=== PATIENT | female | born 1945 | race Caucasian/White ===

== ENCOUNTER 2021-09-30 18:12 | Inpatient (IN) | payer OTHER ==
[~2021-09-30] VITALS: Ht 165.1 cm; Wt 76.4 kg
[2021-09-30 22:24] LABS: Basophils # (auto) 0.1 10 ^3/uL (0-0.2); Basophils % (auto) 0.8 % (0.0-2.0); Eosinophils # (auto) 0 10 ^3/uL (0-0.8); Eosinophils % (auto) 0.2 % (0.0-7.0); Hematocrit 41.7 % (36.0-46.0); Hemoglobin 13.3 g/dL (12.2-16.2); Lymphocytes # (auto) 2.2 10 ^3/uL (0.4-5.4); Lymphocytes % (auto) 17.6 % (10.0-50.0); Mean Corpuscular Hemoglobin 29.2 pg (28.0-32.0); Mean Corpuscular Hgb Conc. 31.9 g/dL (32.0-36.0); Mean Corpuscular Volume 91.5 fL (80.0-100.0); Monocytes % (auto) 7.9 % (0.0-12.0); Neutrophils # (auto) 9.3 10 ^3/uL (1.6-8.6); Neutrophils % (auto) 73.5 % (37.0-80.0); Red Blood Cells 4.55 10^6/uL (4.0-5.20); Red Cell Distribution Width 17.9 % (11.8-14.3); White Blood Cell 12.6 10^3/uL (4.4-10.8)
[2021-09-30 22:40] LABS: Albumin 3.2 g/dL (3.4-5.0); Calcium 9.2 mg/dL (8.5-10.1)
[2021-09-30 22:41] LABS: INR 1.03 (0.9-1.15); Partial Thromboplastin Time 21.1 sec (23.6-33.0)
[2021-09-30] MEDS ORDERED: HYDROcodone-ACET 5/325MG TAB PO ONE (22:45)
[2021-09-30 22:46] LABS: BUN/Creatinine Ratio 19.1; Bilirubin, Total 0.5 mg/dL (0.2-1.0); Total Protein 6.5 g/dL (6.4-8.2)
[2021-09-30] MEDS ORDERED: ONDANSETRON HCL 4 MG/2 ML VIAL IV ONE (23:15)
[2021-09-30] MEDS ORDERED: CLOPIDOGREL 300 MG TAB PO ONE (23:45)
[2021-10-01] MEDS ORDERED: DOCUSATE SOD 100 MG CAP PO PRN (00:45)
[2021-10-01] MEDS: POTASSIUM CHL 20MEQ/50ML 50 ML IV SCH ×2 (00:45→02:45)
[2021-10-01] MEDS ORDERED: HYDROcodone-ACET 5/325MG TAB PO PRN (00:45)
[2021-10-01] MEDS ORDERED: cefTRIAXone 1GM/50ML D5W 50 ML IV ONE (00:45)
[2021-10-01] MEDS ORDERED: ACETAMINOPHEN 325 MG TAB PO PRN (00:45)
[2021-10-01] MEDS ORDERED: ONDANSETRON HCL 4 MG/2 ML VIAL IV PRN ×2 (00:45→09:00)
[2021-10-01] MEDS ORDERED: DEXTROSE (50%) 50ML SYRG IV PRN ×2 (00:45→09:00)
[2021-10-01] MEDS ORDERED: ENOXAPARIN SOD 120 MG/0.8 ML SYRINGE SC SCH (01:00)
[2021-10-01] MEDS ORDERED: LORazepam 2MG/ML-1ML VIAL ONE (01:50)
[2021-10-01] MEDS ORDERED: LORazepam 2MG/ML-1ML VIAL IV ONE (02:15)
[2021-10-01 02:23] LABS: Basophils # (auto) 0.3 10 ^3/uL (0-0.2); Basophils % (auto) 1.6 % (0.0-2.0); Eosinophils # (auto) 0.1 10 ^3/uL (0-0.8); Eosinophils % (auto) 0.3 % (0.0-7.0); Hematocrit 45.1 % (36.0-46.0); Hemoglobin 14.1 g/dL (12.2-16.2); Lymphocytes # (auto) 3.6 10 ^3/uL (0.4-5.4); Lymphocytes % (auto) 21.9 % (10.0-50.0); Mean Corpuscular Hemoglobin 28.9 pg (28.0-32.0); Mean Corpuscular Hgb Conc. 31.2 g/dL (32.0-36.0); Mean Corpuscular Volume 92.6 fL (80.0-100.0); Monocytes % (auto) 6.1 % (0.0-12.0); Neutrophils # (auto) 11.5 10 ^3/uL (1.6-8.6); Neutrophils % (auto) 70.1 % (37.0-80.0); Nucleated Red Blood Cells % 0.1 %; Red Blood Cells 4.87 10^6/uL (4.0-5.20); Red Cell Distribution Width 18.3 % (11.8-14.3); White Blood Cell 16.4 10^3/uL (4.4-10.8)
[2021-10-01 02:41] LABS: Albumin 3.5 g/dL (3.4-5.0); BUN/Creatinine Ratio 15.8; Calcium 9.8 mg/dL (8.5-10.1); Potassium 3.8 mmol/L (3.5-5.1)
[2021-10-01 02:44] LABS: Bilirubin, Total 0.5 mg/dL (0.2-1.0); Total Protein 6.5 g/dL (6.4-8.2)
[2021-10-01 03:34] LABS: Urine Bacteria MANY /hpf (None Seen); Urine Blood 1+ /uL (Negative); Urine Hyaline Cast MANY /lpf (0 - 2); Urine Mucus FEW (None Seen); Urine Specific Gravity 1.036 (1.001-1.035); Urine WBC 944 /hpf (0 - 5); Urine WBC Clumps PRESENT /hpf (None Seen)
[2021-10-01] MEDS ORDERED: SOD CHL 0.45% 1,000 ML IV SCH (06:30)
[2021-10-01] MEDS: SODIUM CHLOR 0.9% PF (SALINE LOCK) 10ML VIAL/SYR IV SCH ×3 (06:51→22:17)
[2021-10-01] MEDS ORDERED: ACCU-CHEK COMFORT CURVE STRIP VI SCH (07:00)
[2021-10-01] MEDS ORDERED: InsuLIN REG 1unit/0.01ml Soln (100units/ml) SC SCH ×2 (07:00→22:00)
[2021-10-01] MEDS: LEVOTHYROXINE SODIUM 25 MCG TAB PO SCH (07:24)
[2021-10-01] MEDS ORDERED: AMIODARONE HCL 150 MG in D5W 5% 100 ML IV ONE (07:45)
[2021-10-01] MEDS ORDERED: AMIODARONE 450mg/250ml AE 250 ML IV SCH (08:00)
[2021-10-01] MEDS: cefTRIAXone 1GM/50ML D5W 50 ML IV SCH (09:00)
[2021-10-01] MEDS ORDERED: MORPHINE SULFATE INJECTION 2 MG/ML SYRG IV PRN (09:00)
[2021-10-01] MEDS ORDERED: NITROGLYCERIN 0.4 MG SL TAB SL PRN (09:00)
[2021-10-01] MEDS: SODIUM CHLORIDE 0.9% 1,000 ML IV SCH ×2 (09:00→19:00)
[2021-10-01 09:41] LABS: Amphetamine Screen, Urine NEGATIVE (NEGATIVE); Barbiturate Scree,Urine NEGATIVE (NEGATIVE)
[2021-10-01] MEDS: FAMOTIDINE (10MG/ML) 2ML VL IV SCH (09:46)
[2021-10-01 09:49] LABS: Benzodiazephine Screen, Urine NEGATIVE (NEGATIVE); Cannabinoid Screen, Urine NEGATIVE (NEGATIVE); Cocaine Screen, Urine NEGATIVE (NEGATIVE); Opiate Scree,Urine POSITIVE (NEGATIVE); Phencyclidine Screen, Urine NEGATIVE (NEGATIVE)
[2021-10-01] MEDS ORDERED: ENOXAPARIN SOD 100 MG/1 ML SYRINGE SC SCH (10:00)
[2021-10-01] MEDS: MORPHINE SULFATE INJECTION 2 MG/ML SYRG IV PRN (10:49)
[2021-10-01] MEDS: METOPROLOL TARTRATE 25 MG TAB PO SCH ×2 (10:50→22:00)
[2021-10-01] MEDS: ASPirin 81 mg TAB PO SCH (10:50)
[2021-10-01] MEDS: LISINOPRIL 10 MG TAB PO SCH (10:51)
[2021-10-01] MEDS: ENOXAPARIN SOD 40 MG/0.4 ML SYRINGE SC SCH (10:51)
[2021-10-01] MEDS: InsuLIN REG 1unit/0.01ml Soln (100units/ml) SC SCH ×2 (11:51→18:33)
[2021-10-01] MEDS: ACCU-CHEK COMFORT CURVE STRIP VI SCH ×2 (11:53→17:00)
[2021-10-01] MEDS: HALOPERIDOL LACTATE 5 MG/ML INJ VIAL IV SCH ×2 (14:00→18:25)
[2021-10-01] MEDS: AMIODARONE 450mg/250ml AE 250 ML IV SCH (14:00)
[2021-10-01] MEDS: ATORVASTATIN 20 MG TAB PO SCH (22:00)
[2021-10-02] MEDS: InsuLIN REG 1unit/0.01ml Soln (100units/ml) SC SCH ×5 (00:23→23:04)
[2021-10-02] MEDS: ACCU-CHEK COMFORT CURVE STRIP VI SCH ×5 (00:23→23:08)
[2021-10-02] MEDS: HALOPERIDOL LACTATE 5 MG/ML INJ VIAL IV PRN ×3 (00:30→17:45)
[2021-10-02] MEDS: AMIODARONE 450mg/250ml AE 250 ML IV SCH ×2 (01:19→20:00)
[2021-10-02 04:59] LABS: Basophils # (auto) 0.1 10 ^3/uL (0-0.2); Basophils % (auto) 0.6 % (0.0-2.0); Eosinophils # (auto) 0.2 10 ^3/uL (0-0.8); Eosinophils % (auto) 1.8 % (0.0-7.0); Hematocrit 36.4 % (36.0-46.0); Hemoglobin 11.8 g/dL (12.2-16.2); Lymphocytes # (auto) 1.8 10 ^3/uL (0.4-5.4); Lymphocytes % (auto) 17.1 % (10.0-50.0); Mean Corpuscular Hemoglobin 29.7 pg (28.0-32.0); Mean Corpuscular Hgb Conc. 32.4 g/dL (32.0-36.0); Mean Corpuscular Volume 91.5 fL (80.0-100.0); Monocytes # (auto) 0.8 10 ^3/uL (0-1.3); Monocytes % (auto) 7.8 % (0.0-12.0); Neutrophils # (auto) 7.7 10 ^3/uL (1.6-8.6); Neutrophils % (auto) 72.7 % (37.0-80.0); Red Blood Cells 3.97 10^6/uL (4.0-5.20); Red Cell Distribution Width 17.8 % (11.8-14.3); White Blood Cell 10.6 10^3/uL (4.4-10.8)
[2021-10-02 05:06] LABS: Albumin 2.8 g/dL (3.4-5.0); Calcium 8.5 mg/dL (8.5-10.1)
[2021-10-02 05:09] LABS: BUN/Creatinine Ratio 18.4; Bilirubin, Total 0.5 mg/dL (0.2-1.0); Total Protein 5.8 g/dL (6.4-8.2)
[2021-10-02] MEDS: SODIUM CHLORIDE 0.9% 1,000 ML IV SCH ×2 (07:17→14:41)
[2021-10-02] MEDS: SODIUM CHLOR 0.9% PF (SALINE LOCK) 10ML VIAL/SYR IV SCH ×3 (07:17→23:11)
[2021-10-02] MEDS: LEVOTHYROXINE SODIUM 25 MCG TAB PO SCH (07:32)
[2021-10-02] MEDS: HALOPERIDOL LACTATE 5 MG/ML INJ VIAL IV SCH ×3 (07:32→22:00)
[2021-10-02] MEDS: cefTRIAXone 1GM/50ML D5W 50 ML IV SCH (09:27)
[2021-10-02] MEDS: LISINOPRIL 10 MG TAB PO SCH (10:13)
[2021-10-02] MEDS: METOPROLOL TARTRATE 25 MG TAB PO SCH ×2 (10:13→22:00)
[2021-10-02] MEDS: ASPirin 81 mg TAB PO SCH (10:13)
[2021-10-02] MEDS: FAMOTIDINE (10MG/ML) 2ML VL IV SCH (10:13)
[2021-10-02] MEDS: ENOXAPARIN SOD 40 MG/0.4 ML SYRINGE SC SCH (10:13)
[2021-10-02] MEDS ORDERED: SUCCINYLCHOLINE CHLORIDE 20 MG/ML 10ML VIAL IV ONE (10:50)
[2021-10-02] MEDS ORDERED: ETOMIDATE (2MG/ML) 20ML VIAL IV ONE (10:50)
[2021-10-02] MEDS ORDERED: MIDAZOLAM HCL 5 MG/ML-1ML VIAL ONE (10:51)
[2021-10-02] MEDS ORDERED: MIDAZOLAM DRIP 50 mg/50mL 0 ML IV ONE (10:51)
[2021-10-02] MEDS ORDERED: diphenhdrAMINE HCL 50 MG/1 ML VL ONE (11:00)
[2021-10-02] MEDS: ATORVASTATIN 20 MG TAB PO SCH (22:00)
[2021-10-03] MEDS: SODIUM CHLORIDE 0.9% 1,000 ML IV SCH ×3 (01:00→20:53)
[2021-10-03] MEDS: MORPHINE SULFATE INJECTION 2 MG/ML SYRG IV PRN ×2 (01:13→12:23)
[2021-10-03] MEDS: HALOPERIDOL LACTATE 5 MG/ML INJ VIAL IV SCH ×2 (06:00→14:00)
[2021-10-03] MEDS: SODIUM CHLOR 0.9% PF (SALINE LOCK) 10ML VIAL/SYR IV SCH ×2 (06:46→14:07)
[2021-10-03] MEDS: AMIODARONE 450mg/250ml AE 250 ML IV SCH (07:12)
[2021-10-03] MEDS: ACCU-CHEK COMFORT CURVE STRIP VI SCH ×4 (08:58→22:00)
[2021-10-03] MEDS: InsuLIN REG 1unit/0.01ml Soln (100units/ml) SC SCH ×3 (09:21→17:47)
[2021-10-03] MEDS: FAMOTIDINE (10MG/ML) 2ML VL IV SCH (09:44)
[2021-10-03] MEDS: cefTRIAXone 1GM/50ML D5W 50 ML IV SCH (09:44)
[2021-10-03] MEDS: ASPirin 81 mg TAB PO SCH (09:45)
[2021-10-03] MEDS: LISINOPRIL 10 MG TAB PO SCH (09:45)
[2021-10-03] MEDS: METOPROLOL TARTRATE 25 MG TAB PO SCH (09:45)
[2021-10-03] MEDS: ENOXAPARIN SOD 40 MG/0.4 ML SYRINGE SC SCH (09:46)
[2021-10-03] MEDS: LEVOTHYROXINE SODIUM 25 MCG TAB PO SCH (10:02)
[2021-10-03 11:25] LABS: Folate (Folic Acid) 19.96 ng/mL (5.38-24)
[2021-10-03] MEDS ORDERED: HYDR-4072 PO (17:44)
[2021-10-03] MEDS ORDERED: [UNRECOGNIZED DRUG - CODE] PO (17:44)
[2021-10-03] MEDS ORDERED: CITA-77 PO (17:44)
[2021-10-03] MEDS ORDERED: LEVO75TA6 PO (17:44)
[2021-10-03] MEDS ORDERED: INSREG3 SC (17:44)
[2021-10-03] MEDS ORDERED: BUPR-60 PO (17:44)
[2021-10-03] MEDS ORDERED: ATOR40TA52 PO (17:44)
[2021-10-03] MEDS ORDERED: ALEN70TA74 PO (17:44)
[2021-10-03] MEDS ORDERED: LISI-275 PO (17:44)
[2021-10-03 23:20] VITALS: BP 117/72
[2021-10-04] MEDS: AMIODARONE 450mg/250ml AE 250 ML IV SCH (00:34)
[2021-10-04] MEDS: ATORVASTATIN 20 MG TAB PO SCH ×2 (00:35→21:34)
[2021-10-04] MEDS: METOPROLOL TARTRATE 25 MG TAB PO SCH ×3 (00:36→21:34)
[2021-10-04] MEDS: HALOPERIDOL LACTATE 5 MG/ML INJ VIAL IV SCH (00:37)
[2021-10-04] MEDS: SODIUM CHLOR 0.9% PF (SALINE LOCK) 10ML VIAL/SYR IV SCH ×4 (00:37→21:33)
[2021-10-04] MEDS: InsuLIN REG 1unit/0.01ml Soln (100units/ml) SC SCH ×5 (00:51→21:35)
[2021-10-04 05:19] VITALS: BP 106/57
[2021-10-04] MEDS: LEVOTHYROXINE SODIUM 25 MCG TAB PO SCH (06:38)
[2021-10-04] MEDS: ACCU-CHEK COMFORT CURVE STRIP VI SCH ×4 (06:38→21:34)
[2021-10-04] MEDS: SODIUM CHLORIDE 0.9% 1,000 ML IV SCH ×3 (06:38→23:48)
[2021-10-04 07:36] LABS: Basophils # (auto) 0.1 10 ^3/uL (0-0.2); Basophils % (auto) 0.7 % (0.0-2.0); Eosinophils # (auto) 0.3 10 ^3/uL (0-0.8); Eosinophils % (auto) 2.5 % (0.0-7.0); Hematocrit 37.6 % (36.0-46.0); Hemoglobin 12.1 g/dL (12.2-16.2); Lymphocytes # (auto) 1.2 10 ^3/uL (0.4-5.4); Lymphocytes % (auto) 11.8 % (10.0-50.0); Mean Corpuscular Hemoglobin 29.5 pg (28.0-32.0); Mean Corpuscular Hgb Conc. 32.2 g/dL (32.0-36.0); Mean Corpuscular Volume 91.6 fL (80.0-100.0); Monocytes # (auto) 0.9 10 ^3/uL (0-1.3); Monocytes % (auto) 8.5 % (0.0-12.0); Neutrophils # (auto) 8.1 10 ^3/uL (1.6-8.6); Neutrophils % (auto) 76.5 % (37.0-80.0); Red Cell Distribution Width 18.3 % (11.8-14.3); White Blood Cell 10.6 10^3/uL (4.4-10.8)
[2021-10-04 08:00] VITALS: BP 123/61
[2021-10-04 08:00] LABS: Potassium 3.3 mmol/L (3.5-5.1)
[2021-10-04 08:16] LABS: Albumin 2.6 g/dL (3.4-5.0); Bilirubin, Total 0.6 mg/dL (0.2-1.0); Calcium 8.9 mg/dL (8.5-10.1); Total Protein 5.4 g/dL (6.4-8.2)
[2021-10-04] MEDS: cefTRIAXone 1GM/50ML D5W 50 ML IV SCH (09:21)
[2021-10-04] MEDS: FAMOTIDINE (10MG/ML) 2ML VL IV SCH (09:21)
[2021-10-04] MEDS: ASPirin 81 mg TAB PO SCH (09:22)
[2021-10-04] MEDS: ENOXAPARIN SOD 40 MG/0.4 ML SYRINGE SC SCH (09:22)
[2021-10-04] MEDS: LISINOPRIL 10 MG TAB PO SCH (09:22)
[2021-10-04] MEDS ORDERED: POTASSIUM CHL 20 Meq TABLET PO ONE (10:15)
[2021-10-04] MEDS ORDERED: AMIODARONE HCL 200 MG TAB PO ONE (10:45)
[2021-10-04 13:00] VITALS: BP 117/60
[2021-10-04 17:00] VITALS: BP 142/62
[2021-10-04] MEDS ORDERED: POTASSIUM CHL 20MEQ/50ML 50 ML IV ONE (17:00)
[2021-10-04 20:00] VITALS: BP 120/68
[2021-10-04] MEDS: MORPHINE SULFATE INJECTION 2 MG/ML SYRG IV PRN (21:02)
[2021-10-04] MEDS: AMIODARONE HCL 200 MG TAB PO SCH (21:33)
[2021-10-05 05:00] VITALS: BP 144/68
[2021-10-05 05:40] LABS: Basophils # (auto) 0.1 10 ^3/uL (0-0.2); Eosinophils # (auto) 0.2 10 ^3/uL (0-0.8); Eosinophils % (auto) 2.3 % (0.0-7.0); Hematocrit 36.8 % (36.0-46.0); Hemoglobin 11.9 g/dL (12.2-16.2); Lymphocytes # (auto) 1.4 10 ^3/uL (0.4-5.4); Lymphocytes % (auto) 14.1 % (10.0-50.0); Mean Corpuscular Hemoglobin 29.4 pg (28.0-32.0); Mean Corpuscular Hgb Conc. 32.3 g/dL (32.0-36.0); Mean Corpuscular Volume 90.9 fL (80.0-100.0); Monocytes # (auto) 0.9 10 ^3/uL (0-1.3); Monocytes % (auto) 8.8 % (0.0-12.0); Neutrophils # (auto) 7.4 10 ^3/uL (1.6-8.6); Neutrophils % (auto) 73.8 % (37.0-80.0); Red Blood Cells 4.05 10^6/uL (4.0-5.20); Red Cell Distribution Width 18.3 % (11.8-14.3)
[2021-10-05 06:09] LABS: Albumin 2.5 g/dL (3.4-5.0); BUN/Creatinine Ratio 13.1; Bilirubin, Total 0.6 mg/dL (0.2-1.0); Calcium 8.6 mg/dL (8.5-10.1); Magnesium 2.7 mg/dL (1.6-2.6); Total Protein 5.8 g/dL (6.4-8.2)
[2021-10-05] MEDS: ACCU-CHEK COMFORT CURVE STRIP VI SCH ×4 (06:19→22:00)
[2021-10-05] MEDS: SODIUM CHLOR 0.9% PF (SALINE LOCK) 10ML VIAL/SYR IV SCH ×3 (06:19→22:35)
[2021-10-05] MEDS: LEVOTHYROXINE SODIUM 25 MCG TAB PO SCH (06:19)
[2021-10-05] MEDS: InsuLIN REG 1unit/0.01ml Soln (100units/ml) SC SCH ×4 (06:19→22:00)
[2021-10-05 09:00] VITALS: BP 133/72
[2021-10-05] MEDS ORDERED: POTASSIUM CHL 20 Meq TABLET PO ONE (09:15)
[2021-10-05] MEDS: ENOXAPARIN SOD 40 MG/0.4 ML SYRINGE SC SCH (10:00)
[2021-10-05] MEDS: AMIODARONE HCL 200 MG TAB PO SCH ×2 (10:00→22:35)
[2021-10-05] MEDS: ASPirin 81 mg TAB PO SCH (10:00)
[2021-10-05] MEDS: LISINOPRIL 10 MG TAB PO SCH (10:00)
[2021-10-05] MEDS: FAMOTIDINE (10MG/ML) 2ML VL IV SCH (10:00)
[2021-10-05] MEDS: METOPROLOL TARTRATE 25 MG TAB PO SCH ×2 (10:00→22:38)
[2021-10-05] MEDS: cefTRIAXone 1GM/50ML D5W 50 ML IV SCH (12:00)
[2021-10-05] MEDS: SODIUM CHLORIDE 0.9% 1,000 ML IV SCH (13:00)
[2021-10-05 13:19] VITALS: BP 119/51
[2021-10-05 17:00] VITALS: BP 138/63
[2021-10-05 22:00] VITALS: BP 150/72
[2021-10-05] MEDS: ATORVASTATIN 20 MG TAB PO SCH (22:34)
[2021-10-06] MEDS: SODIUM CHLORIDE 0.9% 1,000 ML IV SCH ×3 (00:01→19:44)
[2021-10-06 05:19] LABS: Basophils # (auto) 0.1 10 ^3/uL (0-0.2); Basophils % (auto) 0.7 % (0.0-2.0); Eosinophils # (auto) 0.2 10 ^3/uL (0-0.8); Eosinophils % (auto) 2.1 % (0.0-7.0); Hematocrit 36.2 % (36.0-46.0); Hemoglobin 11.9 g/dL (12.2-16.2); Lymphocytes # (auto) 0.9 10 ^3/uL (0.4-5.4); Lymphocytes % (auto) 8.3 % (10.0-50.0); Mean Corpuscular Hemoglobin 29.8 pg (28.0-32.0); Mean Corpuscular Hgb Conc. 32.9 g/dL (32.0-36.0); Mean Corpuscular Volume 90.7 fL (80.0-100.0); Monocytes # (auto) 0.8 10 ^3/uL (0-1.3); Monocytes % (auto) 7.5 % (0.0-12.0); Neutrophils # (auto) 8.4 10 ^3/uL (1.6-8.6); Neutrophils % (auto) 81.4 % (37.0-80.0); Nucleated Red Blood Cells % 0.1 %; Red Blood Cells 3.99 10^6/uL (4.0-5.20); Red Cell Distribution Width 18.6 % (11.8-14.3); White Blood Cell 10.4 10^3/uL (4.4-10.8)
[2021-10-06 05:30] VITALS: BP 153/67
[2021-10-06 05:36] LABS: Albumin 2.7 g/dL (3.4-5.0); BUN/Creatinine Ratio 11.8; Calcium 9.2 mg/dL (8.5-10.1); Potassium 3.8 mmol/L (3.5-5.1)
[2021-10-06 05:44] LABS: Bilirubin, Total 0.8 mg/dL (0.2-1.0); Total Protein 5.8 g/dL (6.4-8.2)
[2021-10-06] MEDS: SODIUM CHLOR 0.9% PF (SALINE LOCK) 10ML VIAL/SYR IV SCH ×3 (06:59→21:00)
[2021-10-06] MEDS: LEVOTHYROXINE SODIUM 25 MCG TAB PO SCH (07:01)
[2021-10-06] MEDS: ACCU-CHEK COMFORT CURVE STRIP VI SCH ×4 (07:02→22:00)
[2021-10-06] MEDS: InsuLIN REG 1unit/0.01ml Soln (100units/ml) SC SCH ×4 (07:05→23:57)
[2021-10-06] MEDS: cefTRIAXone 1GM/50ML D5W 50 ML IV SCH (09:30)
[2021-10-06 09:36] VITALS: BP 143/92
[2021-10-06] MEDS: AMIODARONE HCL 200 MG TAB PO SCH ×2 (10:14→23:00)
[2021-10-06] MEDS: FAMOTIDINE (10MG/ML) 2ML VL IV SCH (10:14)
[2021-10-06] MEDS: METOPROLOL TARTRATE 25 MG TAB PO SCH ×2 (10:15→23:59)
[2021-10-06] MEDS: APIXABAN 5 MG TAB PO SCH ×2 (10:15→22:59)
[2021-10-06] MEDS: LISINOPRIL 10 MG TAB PO SCH (10:15)
[2021-10-06 14:32] VITALS: BP 132/60
[2021-10-06 16:49] VITALS: BP 127/108
[2021-10-06 22:00] VITALS: BP 140/65
[2021-10-06] MEDS: ATORVASTATIN 20 MG TAB PO SCH (22:59)
[2021-10-06] MEDS: HYDROcodone-ACET 5/325MG TAB PO PRN (23:11)
[2021-10-07 05:00] VITALS: BP 130/72
[2021-10-07] MEDS: ACETAMINOPHEN 500 MG TAB PO PRN (05:39)
[2021-10-07] MEDS: LEVOTHYROXINE SODIUM 25 MCG TAB PO SCH (06:15)
[2021-10-07] MEDS: SODIUM CHLOR 0.9% PF (SALINE LOCK) 10ML VIAL/SYR IV SCH ×3 (06:28→22:44)
[2021-10-07] MEDS: SODIUM CHLORIDE 0.9% 1,000 ML IV SCH ×2 (06:28→14:00)
[2021-10-07] MEDS: ACCU-CHEK COMFORT CURVE STRIP VI SCH ×4 (06:44→22:50)
[2021-10-07] MEDS: InsuLIN REG 1unit/0.01ml Soln (100units/ml) SC SCH ×4 (06:46→22:00)
[2021-10-07 07:30] LABS: Basophils # (auto) 0.1 10 ^3/uL (0-0.2); Eosinophils # (auto) 0.1 10 ^3/uL (0-0.8); Eosinophils % (auto) 1.9 % (0.0-7.0); Hematocrit 35.3 % (36.0-46.0); Hemoglobin 11.1 g/dL (12.2-16.2); Lymphocytes # (auto) 1.1 10 ^3/uL (0.4-5.4); Lymphocytes % (auto) 15.6 % (10.0-50.0); Mean Corpuscular Hemoglobin 28.8 pg (28.0-32.0); Mean Corpuscular Hgb Conc. 31.6 g/dL (32.0-36.0); Mean Corpuscular Volume 91.1 fL (80.0-100.0); Monocytes # (auto) 0.8 10 ^3/uL (0-1.3); Monocytes % (auto) 11.4 % (0.0-12.0); Neutrophils # (auto) 5.1 10 ^3/uL (1.6-8.6); Neutrophils % (auto) 70.1 % (37.0-80.0); Nucleated Red Blood Cells % 0.1 %; Red Blood Cells 3.87 10^6/uL (4.0-5.20); Red Cell Distribution Width 18.6 % (11.8-14.3); White Blood Cell 7.3 10^3/uL (4.4-10.8)
[2021-10-07 07:33] LABS: Potassium 3.1 mmol/L (3.5-5.1)
[2021-10-07 07:45] LABS: Albumin 2.3 g/dL (3.4-5.0); BUN/Creatinine Ratio 10.2; Bilirubin, Total 0.5 mg/dL (0.2-1.0); Calcium 8.4 mg/dL (8.5-10.1); Total Protein 5.7 g/dL (6.4-8.2)
[2021-10-07] MEDS: cefTRIAXone 1GM/50ML D5W 50 ML IV SCH (08:12)
[2021-10-07 09:00] VITALS: BP 119/49
[2021-10-07] MEDS: FAMOTIDINE (10MG/ML) 2ML VL IV SCH (09:04)
[2021-10-07] MEDS: AMIODARONE HCL 200 MG TAB PO SCH ×2 (09:04→22:48)
[2021-10-07] MEDS: METOPROLOL TARTRATE 25 MG TAB PO SCH ×2 (09:05→22:48)
[2021-10-07] MEDS: LISINOPRIL 10 MG TAB PO SCH (09:05)
[2021-10-07] MEDS: APIXABAN 5 MG TAB PO SCH ×2 (09:05→22:46)
[2021-10-07] MEDS: HYDROcodone-ACET 5/325MG TAB PO PRN ×2 (09:06→17:50)
[2021-10-07] MEDS ORDERED: POTASSIUM CHL 20 Meq TABLET PO ONE (11:30)
[2021-10-07 13:00] VITALS: BP 103/52
[2021-10-07] MEDS ORDERED: CHOLECALCIFEROL (VITD3) 2,000 UNIT CAP/TAB PO ONE (14:00)
[2021-10-07] MEDS ORDERED: ZINC SULFATE 220mg CAP or TAB PO ONE (14:00)
[2021-10-07 17:00] VITALS: BP 112/58
[2021-10-07 22:00] VITALS: BP 122/80
[2021-10-07] MEDS: ASCORBIC ACID 500 MG TAB PO SCH (22:45)
[2021-10-07] MEDS: ATORVASTATIN 20 MG TAB PO SCH (22:45)
[2021-10-08] MEDS: HALOPERIDOL 1 MG TAB PO PRN (02:06)
[2021-10-08 05:00] VITALS: BP 140/74
[2021-10-08] MEDS: SODIUM CHLOR 0.9% PF (SALINE LOCK) 10ML VIAL/SYR IV SCH ×3 (05:44→22:42)
[2021-10-08] MEDS: MORPHINE SULFATE INJECTION 2 MG/ML SYRG IV PRN (05:44)
[2021-10-08 06:43] LABS: Basophils # (auto) 0 10 ^3/uL (0-0.2); Basophils % (auto) 0.6 % (0.0-2.0); Eosinophils # (auto) 0.1 10 ^3/uL (0-0.8); Eosinophils % (auto) 1.8 % (0.0-7.0); Hematocrit 36.3 % (36.0-46.0); Hemoglobin 11.7 g/dL (12.2-16.2); Lymphocytes # (auto) 1.3 10 ^3/uL (0.4-5.4); Lymphocytes % (auto) 17.1 % (10.0-50.0); Mean Corpuscular Hemoglobin 29.4 pg (28.0-32.0); Mean Corpuscular Hgb Conc. 32.2 g/dL (32.0-36.0); Monocytes # (auto) 0.8 10 ^3/uL (0-1.3); Monocytes % (auto) 10.3 % (0.0-12.0); Neutrophils # (auto) 5.3 10 ^3/uL (1.6-8.6); Neutrophils % (auto) 70.2 % (37.0-80.0); Nucleated Red Blood Cells % 0.2 %; Red Blood Cells 3.99 10^6/uL (4.0-5.20); Red Cell Distribution Width 18.7 % (11.8-14.3); White Blood Cell 7.5 10^3/uL (4.4-10.8)
[2021-10-08] MEDS: SODIUM CHLORIDE 0.9% 1,000 ML IV SCH ×2 (06:55→07:55)
[2021-10-08] MEDS: LEVOTHYROXINE SODIUM 25 MCG TAB PO SCH (06:55)
[2021-10-08] MEDS: ACCU-CHEK COMFORT CURVE STRIP VI SCH ×4 (06:55→22:47)
[2021-10-08] MEDS: InsuLIN REG 1unit/0.01ml Soln (100units/ml) SC SCH ×4 (06:56→22:48)
[2021-10-08 07:01] LABS: Potassium 3.6 mmol/L (3.5-5.1)
[2021-10-08 07:09] LABS: Albumin 2.5 g/dL (3.4-5.0); Bilirubin, Total 0.6 mg/dL (0.2-1.0); Calcium 8.8 mg/dL (8.5-10.1); Total Protein 6.1 g/dL (6.4-8.2)
[2021-10-08 08:00] VITALS: BP 128/55
[2021-10-08] MEDS: cefTRIAXone 1GM/50ML D5W 50 ML IV SCH (09:00)
[2021-10-08] MEDS: LISINOPRIL 10 MG TAB PO SCH (10:00)
[2021-10-08] MEDS: ASCORBIC ACID 500 MG TAB PO SCH ×2 (10:00→22:46)
[2021-10-08] MEDS: METOPROLOL TARTRATE 25 MG TAB PO SCH ×2 (10:00→22:46)
[2021-10-08] MEDS: CHOLECALCIFEROL (VITD3) 2,000 UNIT CAP/TAB PO SCH (10:00)
[2021-10-08] MEDS: AMIODARONE HCL 200 MG TAB PO SCH ×2 (10:00→22:43)
[2021-10-08] MEDS: FAMOTIDINE (10MG/ML) 2ML VL IV SCH (10:00)
[2021-10-08] MEDS: ZINC SULFATE 220mg CAP or TAB PO SCH (10:00)
[2021-10-08] MEDS: APIXABAN 5 MG TAB PO SCH ×2 (10:00→22:43)
[2021-10-08 12:00] VITALS: BP 124/64
[2021-10-08] MEDS: DexAMETHasone 4 MG TAB PO SCH (15:26)
[2021-10-08 15:59] VITALS: BP 131/59
[2021-10-08 22:00] VITALS: BP 153/68
[2021-10-08] MEDS: ATORVASTATIN 20 MG TAB PO SCH (22:43)
[2021-10-09 05:00] VITALS: BP 136/76
[2021-10-09] MEDS: LEVOTHYROXINE SODIUM 25 MCG TAB PO SCH (06:05)
[2021-10-09] MEDS: ACCU-CHEK COMFORT CURVE STRIP VI SCH ×4 (06:05→21:47)
[2021-10-09] MEDS: SODIUM CHLOR 0.9% PF (SALINE LOCK) 10ML VIAL/SYR IV SCH ×3 (06:05→21:53)
[2021-10-09] MEDS: InsuLIN REG 1unit/0.01ml Soln (100units/ml) SC SCH ×4 (06:07→21:53)
[2021-10-09 07:23] LABS: Potassium 4.1 mmol/L (3.5-5.1)
[2021-10-09 07:34] LABS: Albumin 2.3 g/dL (3.4-5.0); BUN/Creatinine Ratio 15.3; Bilirubin, Total 0.7 mg/dL (0.2-1.0); Calcium 8.5 mg/dL (8.5-10.1); Total Protein 5.9 g/dL (6.4-8.2)
[2021-10-09 07:45] LABS: Basophils # (auto) 0 10 ^3/uL (0-0.2); Basophils % (auto) 0.4 % (0.0-2.0); Eosinophils # (auto) 0 10 ^3/uL (0-0.8); Hematocrit 34.6 % (36.0-46.0); Hemoglobin 11.4 g/dL (12.2-16.2); Lymphocytes # (auto) 0.9 10 ^3/uL (0.4-5.4); Lymphocytes % (auto) 16.2 % (10.0-50.0); Mean Corpuscular Hemoglobin 29.8 pg (28.0-32.0); Mean Corpuscular Hgb Conc. 33.1 g/dL (32.0-36.0); Monocytes # (auto) 0.3 10 ^3/uL (0-1.3); Monocytes % (auto) 6.4 % (0.0-12.0); Neutrophils # (auto) 4.2 10 ^3/uL (1.6-8.6); Nucleated Red Blood Cells % 0.1 %; Red Blood Cells 3.84 10^6/uL (4.0-5.20); Red Cell Distribution Width 17.9 % (11.8-14.3); White Blood Cell 5.4 10^3/uL (4.4-10.8)
[2021-10-09 08:00] VITALS: BP 139/58
[2021-10-09] MEDS: cefTRIAXone 1GM/50ML D5W 50 ML IV SCH (09:00)
[2021-10-09] MEDS: APIXABAN 5 MG TAB PO SCH ×2 (10:00→21:55)
[2021-10-09] MEDS: ZINC SULFATE 220mg CAP or TAB PO SCH (10:00)
[2021-10-09] MEDS: FAMOTIDINE (10MG/ML) 2ML VL IV SCH (10:00)
[2021-10-09] MEDS: CHOLECALCIFEROL (VITD3) 2,000 UNIT CAP/TAB PO SCH (10:00)
[2021-10-09] MEDS: ASCORBIC ACID 500 MG TAB PO SCH ×2 (10:00→21:56)
[2021-10-09] MEDS: LISINOPRIL 10 MG TAB PO SCH (10:00)
[2021-10-09] MEDS: AMIODARONE HCL 200 MG TAB PO SCH ×2 (10:00→21:54)
[2021-10-09] MEDS: METOPROLOL TARTRATE 25 MG TAB PO SCH ×2 (10:00→21:56)
[2021-10-09] MEDS: DexAMETHasone 4 MG TAB PO SCH (10:00)
[2021-10-09 12:00] VITALS: BP 118/58
[2021-10-09] MEDS ORDERED: FLUCONAZOLE 100 MG TAB PO ONE (13:15)
[2021-10-09 16:00] VITALS: BP 129/68
[2021-10-09] MEDS: SODIUM CHLORIDE 0.9% 1,000 ML IV SCH (16:05)
[2021-10-09] MEDS: ATORVASTATIN 20 MG TAB PO SCH (21:55)
[2021-10-09 22:00] VITALS: BP 129/53
[2021-10-10 05:00] VITALS: BP 122/47
[2021-10-10] MEDS: ACCU-CHEK COMFORT CURVE STRIP VI SCH ×3 (05:28→17:04)
[2021-10-10] MEDS: InsuLIN REG 1unit/0.01ml Soln (100units/ml) SC SCH ×3 (05:34→17:04)
[2021-10-10] MEDS: LEVOTHYROXINE SODIUM 25 MCG TAB PO SCH (05:35)
[2021-10-10] MEDS: SODIUM CHLOR 0.9% PF (SALINE LOCK) 10ML VIAL/SYR IV SCH ×2 (05:35→12:01)
[2021-10-10] MEDS: cefTRIAXone 1GM/50ML D5W 50 ML IV SCH (11:55)
[2021-10-10] MEDS: ASCORBIC ACID 500 MG TAB PO SCH (11:56)
[2021-10-10] MEDS: ZINC SULFATE 220mg CAP or TAB PO SCH (11:56)
[2021-10-10] MEDS: APIXABAN 5 MG TAB PO SCH (11:56)
[2021-10-10] MEDS: LISINOPRIL 10 MG TAB PO SCH (11:57)
[2021-10-10] MEDS: DexAMETHasone 4 MG TAB PO SCH (11:58)
[2021-10-10] MEDS: FLUCONAZOLE 100 MG TAB PO SCH (11:58)
[2021-10-10] MEDS: AMIODARONE HCL 200 MG TAB PO SCH (11:59)
[2021-10-10] MEDS: METOPROLOL TARTRATE 25 MG TAB PO SCH (11:59)
[2021-10-10] MEDS: CHOLECALCIFEROL (VITD3) 2,000 UNIT CAP/TAB PO SCH (11:59)
[2021-10-10] MEDS: FAMOTIDINE (10MG/ML) 2ML VL IV SCH (11:59)
[2021-10-10] MEDS: SODIUM CHLORIDE 0.9% 1,000 ML IV SCH (12:08)
[2021-10-10 22:00] VITALS: BP 139/82
[2021-10-11] MEDS: AMIODARONE HCL 200 MG TAB PO SCH ×3 (00:12→22:00)
[2021-10-11] MEDS: APIXABAN 5 MG TAB PO SCH ×3 (00:12→22:00)
[2021-10-11] MEDS: SODIUM CHLOR 0.9% PF (SALINE LOCK) 10ML VIAL/SYR IV SCH ×4 (00:12→22:00)
[2021-10-11] MEDS: ATORVASTATIN 20 MG TAB PO SCH ×2 (00:13→22:00)
[2021-10-11] MEDS: METOPROLOL TARTRATE 25 MG TAB PO SCH ×3 (00:14→22:00)
[2021-10-11] MEDS: ASCORBIC ACID 500 MG TAB PO SCH ×3 (00:14→22:00)
[2021-10-11] MEDS: ACCU-CHEK COMFORT CURVE STRIP VI SCH ×5 (00:15→22:00)
[2021-10-11] MEDS: InsuLIN REG 1unit/0.01ml Soln (100units/ml) SC SCH ×5 (00:15→22:00)
[2021-10-11] MEDS: SODIUM CHLORIDE 0.9% 1,000 ML IV SCH ×3 (01:20→22:00)
[2021-10-11 05:00] VITALS: BP 125/71
[2021-10-11] MEDS: LEVOTHYROXINE SODIUM 25 MCG TAB PO SCH (06:33)
[2021-10-11 09:00] VITALS: BP 157/68
[2021-10-11] MEDS: ZINC SULFATE 220mg CAP or TAB PO SCH (10:00)
[2021-10-11] MEDS: FAMOTIDINE (10MG/ML) 2ML VL IV SCH (10:52)
[2021-10-11] MEDS: cefTRIAXone 1GM/50ML D5W 50 ML IV SCH (10:52)
[2021-10-11] MEDS: DexAMETHasone 4 MG TAB PO SCH (10:53)
[2021-10-11] MEDS: CHOLECALCIFEROL (VITD3) 2,000 UNIT CAP/TAB PO SCH (10:54)
[2021-10-11] MEDS: HALOPERIDOL 1 MG TAB PO PRN ×2 (10:55→21:25)
[2021-10-11] MEDS: HYDROcodone-ACET 5/325MG TAB PO PRN ×2 (10:55→16:48)
[2021-10-11] MEDS: FLUCONAZOLE 100 MG TAB PO SCH (10:59)
[2021-10-11] MEDS: LISINOPRIL 10 MG TAB PO SCH (11:00)
[2021-10-11 13:00] VITALS: BP 145/75
[2021-10-11 16:46] VITALS: BP 132/61
[2021-10-11] MEDS: ACETAMINOPHEN 500 MG TAB PO PRN (21:26)
[2021-10-11 22:00] VITALS: BP 140/64
[2021-10-11] MEDS ORDERED: risperiDONE 1 MG TAB PO SCH (22:00)
[2021-10-12] MEDS: SODIUM CHLORIDE 0.9% 1,000 ML IV SCH (01:09)
[2021-10-12] MEDS: SODIUM CHLOR 0.9% PF (SALINE LOCK) 10ML VIAL/SYR IV SCH ×3 (06:00→22:03)
[2021-10-12] MEDS: ACCU-CHEK COMFORT CURVE STRIP VI SCH ×4 (06:32→22:03)
[2021-10-12] MEDS: InsuLIN REG 1unit/0.01ml Soln (100units/ml) SC SCH ×4 (06:33→22:43)
[2021-10-12] MEDS: LEVOTHYROXINE SODIUM 25 MCG TAB PO SCH (06:34)
[2021-10-12 09:00] VITALS: BP 138/72
[2021-10-12] MEDS: ZINC SULFATE 220mg CAP or TAB PO SCH (10:00)
[2021-10-12] MEDS: CHOLECALCIFEROL (VITD3) 2,000 UNIT CAP/TAB PO SCH (10:00)
[2021-10-12] MEDS: LISINOPRIL 10 MG TAB PO SCH (10:00)
[2021-10-12] MEDS: ASCORBIC ACID 500 MG TAB PO SCH ×2 (10:00→22:02)
[2021-10-12 10:09] LABS: Basophils # (auto) 0 10 ^3/uL (0-0.2); Basophils % (auto) 0.2 % (0.0-2.0); Eosinophils # (auto) 0 10 ^3/uL (0-0.8); Hematocrit 38.4 % (36.0-46.0); Hemoglobin 12.2 g/dL (12.2-16.2); Lymphocytes # (auto) 0.8 10 ^3/uL (0.4-5.4); Lymphocytes % (auto) 10.2 % (10.0-50.0); Mean Corpuscular Hemoglobin 28.5 pg (28.0-32.0); Mean Corpuscular Hgb Conc. 31.6 g/dL (32.0-36.0); Mean Corpuscular Volume 90.2 fL (80.0-100.0); Monocytes # (auto) 0.9 10 ^3/uL (0-1.3); Monocytes % (auto) 11.5 % (0.0-12.0); Neutrophils # (auto) 6.4 10 ^3/uL (1.6-8.6); Neutrophils % (auto) 78.1 % (37.0-80.0); Nucleated Red Blood Cells % 0.1 %; Red Blood Cells 4.26 10^6/uL (4.0-5.20); Red Cell Distribution Width 18.2 % (11.8-14.3); White Blood Cell 8.1 10^3/uL (4.4-10.8)
[2021-10-12 10:26] LABS: BUN/Creatinine Ratio 15.7; Calcium 8.2 mg/dL (8.5-10.1); Magnesium 2.7 mg/dL (1.6-2.6); Potassium 3.5 mmol/L (3.5-5.1)
[2021-10-12] MEDS: HALOPERIDOL 1 MG TAB PO PRN (10:30)
[2021-10-12] MEDS: cefTRIAXone 1GM/50ML D5W 50 ML IV SCH (11:36)
[2021-10-12] MEDS: FLUCONAZOLE 100 MG TAB PO SCH (11:37)
[2021-10-12] MEDS: DexAMETHasone 4 MG TAB PO SCH (11:37)
[2021-10-12] MEDS: FAMOTIDINE (10MG/ML) 2ML VL IV SCH (11:37)
[2021-10-12] MEDS: AMIODARONE HCL 200 MG TAB PO SCH ×2 (11:37→22:02)
[2021-10-12] MEDS: APIXABAN 5 MG TAB PO SCH ×2 (11:38→22:02)
[2021-10-12] MEDS: METOPROLOL TARTRATE 25 MG TAB PO SCH ×2 (11:38→22:01)
[2021-10-12 13:00] VITALS: BP 106/59
[2021-10-12] MEDS: HYDROcodone-ACET 5/325MG TAB PO PRN ×2 (13:09→22:45)
[2021-10-12 17:00] VITALS: BP 109/61
[2021-10-12] MEDS ORDERED: risperiDONE 1 MG TAB PO ONE (17:00)
[2021-10-12 22:00] VITALS: BP 134/90
[2021-10-12] MEDS: ATORVASTATIN 20 MG TAB PO SCH (22:01)
[2021-10-13 05:00] VITALS: BP 131/59
[2021-10-13] MEDS: SODIUM CHLOR 0.9% PF (SALINE LOCK) 10ML VIAL/SYR IV SCH ×3 (06:00→22:06)
[2021-10-13] MEDS: ACCU-CHEK COMFORT CURVE STRIP VI SCH ×4 (07:00→22:06)
[2021-10-13] MEDS: LEVOTHYROXINE SODIUM 25 MCG TAB PO SCH (07:54)
[2021-10-13] MEDS: InsuLIN REG 1unit/0.01ml Soln (100units/ml) SC SCH ×4 (07:55→23:02)
[2021-10-13 09:00] VITALS: BP 142/70
[2021-10-13] MEDS: DexAMETHasone 4 MG TAB PO SCH (10:26)
[2021-10-13] MEDS: ZINC SULFATE 220mg CAP or TAB PO SCH (10:26)
[2021-10-13] MEDS: FAMOTIDINE (10MG/ML) 2ML VL IV SCH (10:26)
[2021-10-13] MEDS: AMIODARONE HCL 200 MG TAB PO SCH ×2 (10:26→22:05)
[2021-10-13] MEDS: APIXABAN 5 MG TAB PO SCH ×2 (10:27→22:05)
[2021-10-13] MEDS: METOPROLOL TARTRATE 25 MG TAB PO SCH ×2 (10:27→22:06)
[2021-10-13] MEDS: ASCORBIC ACID 500 MG TAB PO SCH ×2 (10:27→22:05)
[2021-10-13] MEDS: FLUCONAZOLE 100 MG TAB PO SCH (10:27)
[2021-10-13] MEDS: LISINOPRIL 10 MG TAB PO SCH (10:28)
[2021-10-13] MEDS: CHOLECALCIFEROL (VITD3) 2,000 UNIT CAP/TAB PO SCH (10:28)
[2021-10-13 12:38] VITALS: BP 129/54
[2021-10-13] MEDS: HYDROcodone-ACET 5/325MG TAB PO PRN ×2 (13:35→20:48)
[2021-10-13 16:24] VITALS: BP 109/73
[2021-10-13 22:00] VITALS: BP 133/63
[2021-10-13] MEDS: ATORVASTATIN 20 MG TAB PO SCH (22:05)
[2021-10-13] MEDS: risperiDONE 1 MG TAB PO SCH (22:05)
[2021-10-14 05:00] VITALS: BP 104/56
[2021-10-14] MEDS: SODIUM CHLOR 0.9% PF (SALINE LOCK) 10ML VIAL/SYR IV SCH ×3 (06:00→22:00)
[2021-10-14] MEDS: LEVOTHYROXINE SODIUM 25 MCG TAB PO SCH (06:39)
[2021-10-14] MEDS: ACCU-CHEK COMFORT CURVE STRIP VI SCH ×4 (06:39→22:16)
[2021-10-14] MEDS: InsuLIN REG 1unit/0.01ml Soln (100units/ml) SC SCH ×4 (06:40→22:16)
[2021-10-14] MEDS: HYDROcodone-ACET 5/325MG TAB PO PRN (07:33)
[2021-10-14 09:00] VITALS: BP 107/50
[2021-10-14] MEDS: AMIODARONE HCL 200 MG TAB PO SCH ×2 (10:39→22:18)
[2021-10-14] MEDS: DexAMETHasone 4 MG TAB PO SCH (10:39)
[2021-10-14] MEDS: LISINOPRIL 10 MG TAB PO SCH (10:40)
[2021-10-14] MEDS: FLUCONAZOLE 100 MG TAB PO SCH (10:40)
[2021-10-14] MEDS: METOPROLOL TARTRATE 25 MG TAB PO SCH ×2 (10:41→22:20)
[2021-10-14] MEDS: ZINC SULFATE 220mg CAP or TAB PO SCH (10:41)
[2021-10-14] MEDS: CHOLECALCIFEROL (VITD3) 2,000 UNIT CAP/TAB PO SCH (10:42)
[2021-10-14] MEDS: APIXABAN 5 MG TAB PO SCH ×2 (10:42→22:18)
[2021-10-14] MEDS: ASCORBIC ACID 500 MG TAB PO SCH ×2 (10:42→22:19)
[2021-10-14 13:00] VITALS: BP 109/58
[2021-10-14] MEDS: FAMOTIDINE (10MG/ML) 2ML VL IV SCH (13:32)
[2021-10-14 17:00] VITALS: BP 146/67
[2021-10-14 22:00] VITALS: BP_SYST 10; BP_SYST 118; BP_DIAS 67; BP_DIAS 76
[2021-10-14] MEDS: ATORVASTATIN 20 MG TAB PO SCH (22:17)
[2021-10-14] MEDS: risperiDONE 1 MG TAB PO SCH (22:19)
[2021-10-15] MEDS: ACETAMINOPHEN 500 MG TAB PO PRN (02:53)
[2021-10-15 05:12] VITALS: BP 135/58
[2021-10-15] MEDS: SODIUM CHLOR 0.9% PF (SALINE LOCK) 10ML VIAL/SYR IV SCH ×3 (06:00→22:00)
[2021-10-15] MEDS: ACCU-CHEK COMFORT CURVE STRIP VI SCH ×4 (06:20→22:22)
[2021-10-15] MEDS: LEVOTHYROXINE SODIUM 25 MCG TAB PO SCH (06:20)
[2021-10-15] MEDS: InsuLIN REG 1unit/0.01ml Soln (100units/ml) SC SCH ×4 (06:22→22:42)
[2021-10-15 09:00] VITALS: BP 106/67
[2021-10-15] MEDS: FLUCONAZOLE 100 MG TAB PO SCH (09:24)
[2021-10-15] MEDS: AMIODARONE HCL 200 MG TAB PO SCH ×2 (09:24→22:21)
[2021-10-15] MEDS: METOPROLOL TARTRATE 25 MG TAB PO SCH ×2 (09:24→22:21)
[2021-10-15] MEDS: DexAMETHasone 4 MG TAB PO SCH (09:24)
[2021-10-15] MEDS: ZINC SULFATE 220mg CAP or TAB PO SCH (09:24)
[2021-10-15] MEDS: APIXABAN 5 MG TAB PO SCH ×2 (09:24→22:21)
[2021-10-15] MEDS: ASCORBIC ACID 500 MG TAB PO SCH ×2 (09:25→22:22)
[2021-10-15] MEDS: CHOLECALCIFEROL (VITD3) 2,000 UNIT CAP/TAB PO SCH (09:25)
[2021-10-15] MEDS: FAMOTIDINE 20 MG TAB PO SCH (09:25)
[2021-10-15] MEDS: LISINOPRIL 10 MG TAB PO SCH (09:25)
[2021-10-15 13:00] VITALS: BP 121/61
[2021-10-15 16:46] VITALS: BP 144/74
[2021-10-15 22:00] VITALS: BP 108/69
[2021-10-15] MEDS: risperiDONE 1 MG TAB PO SCH (22:21)
[2021-10-15] MEDS: ATORVASTATIN 20 MG TAB PO SCH (22:21)
[2021-10-16] MEDS: HALOPERIDOL 1 MG TAB PO PRN (03:41)
[2021-10-16 05:00] VITALS: BP 151/63
[2021-10-16] MEDS: SODIUM CHLOR 0.9% PF (SALINE LOCK) 10ML VIAL/SYR IV SCH ×3 (06:00→22:00)
[2021-10-16] MEDS: InsuLIN REG 1unit/0.01ml Soln (100units/ml) SC SCH ×4 (06:37→22:06)
[2021-10-16] MEDS: ACCU-CHEK COMFORT CURVE STRIP VI SCH ×4 (06:37→22:03)
[2021-10-16] MEDS: LEVOTHYROXINE SODIUM 25 MCG TAB PO SCH (06:37)
[2021-10-16 09:00] VITALS: BP 106/59
[2021-10-16] MEDS: DexAMETHasone 4 MG TAB PO SCH (10:00)
[2021-10-16] MEDS: FAMOTIDINE 20 MG TAB PO SCH (10:00)
[2021-10-16] MEDS: METOPROLOL TARTRATE 25 MG TAB PO SCH ×2 (10:00→22:18)
[2021-10-16] MEDS: APIXABAN 5 MG TAB PO SCH ×2 (10:00→22:02)
[2021-10-16] MEDS: LISINOPRIL 10 MG TAB PO SCH (10:00)
[2021-10-16] MEDS: ASCORBIC ACID 500 MG TAB PO SCH ×2 (10:00→22:03)
[2021-10-16] MEDS: FLUCONAZOLE 100 MG TAB PO SCH (10:00)
[2021-10-16] MEDS: AMIODARONE HCL 200 MG TAB PO SCH ×2 (10:00→22:02)
[2021-10-16] MEDS: ZINC SULFATE 220mg CAP or TAB PO SCH (10:00)
[2021-10-16] MEDS: CHOLECALCIFEROL (VITD3) 2,000 UNIT CAP/TAB PO SCH (10:00)
[2021-10-16 14:00] VITALS: BP 112/73
[2021-10-16] MEDS: HALOPERIDOL LACTATE 5 MG/ML INJ VIAL IM PRN (14:09)
[2021-10-16] MEDS: HYDROcodone-ACET 5/325MG TAB PO PRN (15:29)
[2021-10-16 16:00] VITALS: BP 112/73
[2021-10-16 22:00] VITALS: BP 133/70
[2021-10-16] MEDS: ATORVASTATIN 20 MG TAB PO SCH (22:02)
[2021-10-16] MEDS: risperiDONE 1 MG TAB PO SCH (22:03)
[2021-10-17 05:00] VITALS: BP 128/52
[2021-10-17] MEDS: SODIUM CHLOR 0.9% PF (SALINE LOCK) 10ML VIAL/SYR IV SCH ×3 (05:50→21:47)
[2021-10-17] MEDS: ACCU-CHEK COMFORT CURVE STRIP VI SCH ×4 (06:30→21:48)
[2021-10-17] MEDS: LEVOTHYROXINE SODIUM 25 MCG TAB PO SCH (06:31)
[2021-10-17] MEDS: InsuLIN REG 1unit/0.01ml Soln (100units/ml) SC SCH ×4 (06:36→22:09)
[2021-10-17 08:55] VITALS: BP 114/54
[2021-10-17] MEDS: HALOPERIDOL LACTATE 5 MG/ML INJ VIAL IM PRN (09:22)
[2021-10-17] MEDS: ASCORBIC ACID 500 MG TAB PO SCH ×2 (10:00→21:47)
[2021-10-17] MEDS: FLUCONAZOLE 100 MG TAB PO SCH (10:00)
[2021-10-17] MEDS: AMIODARONE HCL 200 MG TAB PO SCH ×2 (10:00→21:48)
[2021-10-17] MEDS: METOPROLOL TARTRATE 25 MG TAB PO SCH ×2 (10:00→21:46)
[2021-10-17] MEDS: ZINC SULFATE 220mg CAP or TAB PO SCH (10:00)
[2021-10-17] MEDS: CHOLECALCIFEROL (VITD3) 2,000 UNIT CAP/TAB PO SCH (10:00)
[2021-10-17] MEDS: FAMOTIDINE 20 MG TAB PO SCH (10:00)
[2021-10-17] MEDS: APIXABAN 5 MG TAB PO SCH ×2 (10:00→21:47)
[2021-10-17] MEDS: LISINOPRIL 10 MG TAB PO SCH (10:00)
[2021-10-17] MEDS: SODIUM CHLORIDE 0.9% 1,000 ML IV SCH (17:00)
[2021-10-17 21:40] VITALS: BP 110/51
[2021-10-17] MEDS: risperiDONE 1 MG TAB PO SCH (21:47)
[2021-10-17] MEDS: ATORVASTATIN 20 MG TAB PO SCH (21:47)
[2021-10-17 22:00] VITALS: BP 110/50
[2021-10-18 05:00] VITALS: BP 99/38
[2021-10-18] MEDS: SODIUM CHLORIDE 0.9% 1,000 ML IV SCH ×3 (05:07→23:15)
[2021-10-18] MEDS: SODIUM CHLOR 0.9% PF (SALINE LOCK) 10ML VIAL/SYR IV SCH ×3 (05:07→21:47)
[2021-10-18] MEDS: ACCU-CHEK COMFORT CURVE STRIP VI SCH ×4 (06:24→22:08)
[2021-10-18] MEDS: InsuLIN REG 1unit/0.01ml Soln (100units/ml) SC SCH ×4 (06:25→22:20)
[2021-10-18 07:01] LABS: Hematocrit 31.6 % (36.0-46.0); Mean Corpuscular Hemoglobin 28.8 pg (28.0-32.0); Mean Corpuscular Hgb Conc. 31.5 g/dL (32.0-36.0); Mean Corpuscular Volume 91.3 fL (80.0-100.0); Red Blood Cells 3.46 10^6/uL (4.0-5.20); Red Cell Distribution Width 18.7 % (11.8-14.3)
[2021-10-18 07:05] LABS: Basophils % (manual) 0 (0.0-2.0); Blast Cells 0; Eosinophils % (manual) 0 (0-7); Metamyelocytes % 0; Myelocytes % 0; Promyelocytes % 0; Reactive Lymphocytes 0
[2021-10-18 07:41] LABS: Band Neutrophils % (manual) 1; Lymphocytes % (manual) 6 (10.0-50.0); Monocytes % (manual) 3 (0-12)
[2021-10-18 07:49] LABS: BUN/Creatinine Ratio 23.1; Calcium 8.5 mg/dL (8.5-10.1); Magnesium 2.4 mg/dL (1.6-2.6)
[2021-10-18 08:50] VITALS: BP 107/48
[2021-10-18] MEDS: LEVOTHYROXINE SODIUM 100 MCG/5 ML INJ IV SCH (09:56)
[2021-10-18] MEDS: FAMOTIDINE 20 MG TAB PO SCH (10:00)
[2021-10-18] MEDS: ZINC SULFATE 220mg CAP or TAB PO SCH (10:00)
[2021-10-18] MEDS: METOPROLOL TARTRATE 25 MG TAB PO SCH (10:00)
[2021-10-18] MEDS: LISINOPRIL 10 MG TAB PO SCH (10:00)
[2021-10-18] MEDS: ASCORBIC ACID 500 MG TAB PO SCH (10:00)
[2021-10-18] MEDS: APIXABAN 5 MG TAB PO SCH (10:00)
[2021-10-18] MEDS: AMIODARONE HCL 200 MG TAB PO SCH (10:00)
[2021-10-18] MEDS: CHOLECALCIFEROL (VITD3) 2,000 UNIT CAP/TAB PO SCH (10:00)
[2021-10-18] MEDS: FLUCONAZOLE 100 MG TAB PO SCH (10:00)
[2021-10-18] MEDS: HALOPERIDOL LACTATE 5 MG/ML INJ VIAL IM PRN (11:41)
[2021-10-18 13:30] VITALS: BP 105/50
[2021-10-18] MEDS ORDERED: SODIUM CHLORIDE 0.9% 500 ML IV ONE (15:30)
[2021-10-18] MEDS ORDERED: METOPROLOL TARTRATE 1MG/1ML-5ML VIAL IV PRN (15:30)
[2021-10-18 16:20] VITALS: BP_SYST 101; BP_DIAS 42; BP_DIAS 48; BP_DIAS 52
[2021-10-18] MEDS: LORazepam 2MG/ML-1ML VIAL IV PRN (17:44)
[2021-10-18 22:00] VITALS: BP 138/52
[2021-10-19] VITALS (13 sets, daily range): BP systolic 78–146; BP diastolic 31–117
[2021-10-19] MEDS: LORazepam 2MG/ML-1ML VIAL IV PRN (04:03)
[2021-10-19] MEDS: SODIUM CHLOR 0.9% PF (SALINE LOCK) 10ML VIAL/SYR IV SCH ×3 (05:26→23:16)
[2021-10-19] MEDS: ACCU-CHEK COMFORT CURVE STRIP VI SCH ×4 (06:09→23:16)
[2021-10-19 06:11] LABS: Hematocrit 28.6 % (36.0-46.0); Hemoglobin 9.1 g/dL (12.2-16.2); Mean Corpuscular Hgb Conc. 31.8 g/dL (32.0-36.0); Mean Corpuscular Volume 91.2 fL (80.0-100.0); Red Blood Cells 3.14 10^6/uL (4.0-5.20); Red Cell Distribution Width 18.2 % (11.8-14.3); White Blood Cell 23.7 10^3/uL (4.4-10.8)
[2021-10-19] MEDS: InsuLIN REG 1unit/0.01ml Soln (100units/ml) SC SCH ×4 (06:13→22:45)
[2021-10-19 06:36] LABS: BUN/Creatinine Ratio 24.7; Calcium 8.5 mg/dL (8.5-10.1); Magnesium 2.6 mg/dL (1.6-2.6); Potassium 4.3 mmol/L (3.5-5.1)
[2021-10-19 06:49] LABS: Basophils % (manual) 0 (0.0-2.0); Blast Cells 0; Eosinophils % (manual) 0 (0-7); Metamyelocytes % 0; Myelocytes % 0; Promyelocytes % 0; Reactive Lymphocytes 0
[2021-10-19] MEDS: SODIUM CHLORIDE 0.9% 1,000 ML IV SCH ×3 (07:15→23:17)
[2021-10-19] MEDS: ENOXAPARIN SOD 60 MG/0.6 ML SYRINGE SC SCH (10:00)
[2021-10-19] MEDS: LEVOTHYROXINE SODIUM 100 MCG/5 ML INJ IV SCH (10:00)
[2021-10-19 11:32] LABS: INR 1.63 (0.9-1.15); Partial Thromboplastin Time 33.5 sec (23.6-33.0)
[2021-10-19 12:23] LABS: Band Neutrophils % (manual) 10; Lymphocytes % (manual) 11 (10.0-50.0); Monocytes % (manual) 3 (0-12)
[2021-10-19] MEDS ORDERED: LORazepam 2MG/ML-1ML VIAL ONE (13:09)
[2021-10-19 18:35] LABS: Hematocrit 27.5 % (36.0-46.0); Hemoglobin 8.8 g/dL (12.2-16.2)
[2021-10-20] VITALS (35 sets, daily range): BP systolic 80–149; BP diastolic 36–105
[2021-10-20] MEDS: SODIUM CHLOR 0.9% PF (SALINE LOCK) 10ML VIAL/SYR IV SCH ×3 (06:20→21:53)
[2021-10-20] MEDS: ACCU-CHEK COMFORT CURVE STRIP VI SCH ×4 (06:21→21:33)
[2021-10-20] MEDS: InsuLIN REG 1unit/0.01ml Soln (100units/ml) SC SCH ×4 (06:21→21:33)
[2021-10-20 07:39] LABS: Potassium 3.8 mmol/L (3.5-5.1)
[2021-10-20 07:41] LABS: Hematocrit 27.4 % (36.0-46.0); Hemoglobin 8.4 g/dL (12.2-16.2); Mean Corpuscular Hemoglobin 27.9 pg (28.0-32.0); Mean Corpuscular Hgb Conc. 30.6 g/dL (32.0-36.0); Mean Corpuscular Volume 91.3 fL (80.0-100.0); Red Cell Distribution Width 18.4 % (11.8-14.3); White Blood Cell 17.8 10^3/uL (4.4-10.8)
[2021-10-20 07:45] LABS: Basophils % (manual) 0 (0.0-2.0); Blast Cells 0; Eosinophils % (manual) 0 (0-7); Promyelocytes % 0; Reactive Lymphocytes 0
[2021-10-20 08:02] LABS: BUN/Creatinine Ratio 36.9; Calcium 8.9 mg/dL (8.5-10.1)
[2021-10-20] MEDS ORDERED: ETOMIDATE (2MG/ML) 20ML VIAL IV ONE (10:37)
[2021-10-20] MEDS ORDERED: ROCURONIUM 10MG/ML 10ML VIAL IV ONE ×2 (10:37→10:41)
[2021-10-20] MEDS ORDERED: MIDAZOLAM DRIP 50 mg/50mL 50 ML IV ONE (10:38)
[2021-10-20] MEDS ORDERED: PROPOFOL 100 ML IV ONE ×2 (10:40→14:50)
[2021-10-20] MEDS ORDERED: NOREPINEPHRINE 8 MG/250ML KIT 500 ML IV ONE (11:18)
[2021-10-20 11:46] LABS: Band Neutrophils % (manual) 6; Lymphocytes % (manual) 1 (10.0-50.0); Metamyelocytes % 1; Monocytes % (manual) 4 (0-12); Myelocytes % 1
[2021-10-20] MEDS ORDERED: VANCOMYCIN 1GM/250ML 250 ML IV ONE (12:15)
[2021-10-20] MEDS ORDERED: VANCOMYCIN PER PHARMACY 0 MG IV SCH (12:15)
[2021-10-20] MEDS ORDERED: PANTOPRAZOLE 40 MG/10 ML VIAL INJ IV ONE (12:30)
[2021-10-20] MEDS: LEVOTHYROXINE SODIUM 100 MCG/5 ML INJ IV SCH (15:47)
[2021-10-20] MEDS: fentaNYL Drip 2500mCg/250mlNS 250 ML IV SCH (16:00)
[2021-10-20] MEDS: SODIUM CHLORIDE 0.9% 1,000 ML IV SCH ×3 (18:02→23:15)
[2021-10-20] MEDS: PROPOFOL 100 ML IV SCH ×2 (18:03→18:31)
[2021-10-20] MEDS: MIDAZOLAM DRIP 50 mg/50mL 50 ML IV SCH (18:32)
[2021-10-20] MEDS: MEROPENEM 500MG IVPB 50 ML IV SCH (21:52)
[2021-10-21] VITALS (64 sets, daily range): BP systolic 94–131; BP diastolic 22–50
[2021-10-21 05:16] LABS: Red Blood Cells 3.17 10^6/uL (4.0-5.20)
[2021-10-21 05:20] LABS: Hematocrit 30.3 % (36.0-46.0); Mean Corpuscular Hemoglobin 28.4 pg (28.0-32.0); Mean Corpuscular Hgb Conc. 29.7 g/dL (32.0-36.0); Mean Corpuscular Volume 95.7 fL (80.0-100.0); Red Cell Distribution Width 19.4 % (11.8-14.3); White Blood Cell 23.5 10^3/uL (4.4-10.8)
[2021-10-21 05:46] LABS: Basophils % (manual) 0 (0.0-2.0); Blast Cells 0; Eosinophils % (manual) 0 (0-7); Myelocytes % 0; Promyelocytes % 0; Reactive Lymphocytes 0
[2021-10-21] MEDS: SODIUM CHLOR 0.9% PF (SALINE LOCK) 10ML VIAL/SYR IV SCH ×3 (06:00→22:51)
[2021-10-21] MEDS: ENOXAPARIN SOD 60 MG/0.6 ML SYRINGE SC SCH ×2 (06:04→10:00)
[2021-10-21 06:28] LABS: Albumin 1.9 g/dL (3.4-5.0); BUN/Creatinine Ratio 31.9; Calcium 9.4 mg/dL (8.5-10.1)
[2021-10-21 06:30] LABS: Bilirubin, Total 0.9 mg/dL (0.2-1.0); Total Protein 5.8 g/dL (6.4-8.2)
[2021-10-21] MEDS: SODIUM CHLORIDE 0.9% 1,000 ML IV SCH (08:49)
[2021-10-21] MEDS: LEVOTHYROXINE SODIUM 100 MCG/5 ML INJ IV SCH (10:00)
[2021-10-21] MEDS ORDERED: VANCOMYCIN 1GM/250ML 250 ML IV ONE (10:00)
[2021-10-21] MEDS: PANTOPRAZOLE 40 MG/10 ML VIAL INJ IV SCH (10:00)
[2021-10-21] MEDS: ACCU-CHEK COMFORT CURVE STRIP VI SCH ×2 (11:43→23:20)
[2021-10-21] MEDS: InsuLIN REG 1unit/0.01ml Soln (100units/ml) SC SCH ×2 (11:43→23:19)
[2021-10-21] MEDS: MEROPENEM 500MG IVPB 50 ML IV SCH ×2 (12:22→22:51)
[2021-10-21] MEDS: NOREPINEPHRINE 8 MG/250ML KIT 250 ML IV SCH ×2 (12:48→17:30)
[2021-10-21] MEDS: MIDAZOLAM DRIP 50 mg/50mL 50 ML IV SCH (12:49)
[2021-10-21] MEDS: PROPOFOL 100 ML IV SCH (12:49)
[2021-10-21 13:24] LABS: Band Neutrophils % (manual) 6; Lymphocytes % (manual) 9 (10.0-50.0); Metamyelocytes % 1; Monocytes % (manual) 4 (0-12)
[2021-10-21] MEDS: fentaNYL Drip 2500mCg/250mlNS 250 ML IV SCH (16:00)
[2021-10-21] MEDS ORDERED: ALBUMIN 25% 100 ML IV ONE (17:00)
[2021-10-21] MEDS ORDERED: FUROSEMIDE 100 MG/10ML VIAL IV ONE (18:00)
[2021-10-22] VITALS (85 sets, daily range): BP systolic 75–145; BP diastolic 18–51
[2021-10-22 04:42] LABS: Mean Corpuscular Volume 92.6 fL (80.0-100.0); White Blood Cell 15.9 10^3/uL (4.4-10.8)
[2021-10-22 04:44] LABS: Hematocrit 23.7 % (36.0-46.0); Hemoglobin 7.1 g/dL (12.2-16.2); Mean Corpuscular Hemoglobin 27.7 pg (28.0-32.0); Mean Corpuscular Hgb Conc. 29.9 g/dL (32.0-36.0); Red Blood Cells 2.56 10^6/uL (4.0-5.20); Red Cell Distribution Width 18.9 % (11.8-14.3)
[2021-10-22 04:49] LABS: Basophils % (manual) 0 (0.0-2.0); Blast Cells 0; Metamyelocytes % 0; Promyelocytes % 0; Reactive Lymphocytes 0
[2021-10-22 05:10] LABS: BUN/Creatinine Ratio 29.1; Calcium 9.2 mg/dL (8.5-10.1); Magnesium 3.1 mg/dL (1.6-2.6); Potassium 3.1 mmol/L (3.5-5.1)
[2021-10-22 05:18] LABS: Band Neutrophils % (manual) 6; Eosinophils % (manual) 4 (0-7); Lymphocytes % (manual) 4 (10.0-50.0); Monocytes % (manual) 2 (0-12); Myelocytes % 2
[2021-10-22] MEDS: SODIUM CHLOR 0.9% PF (SALINE LOCK) 10ML VIAL/SYR IV SCH ×3 (06:14→22:00)
[2021-10-22] MEDS: ACCU-CHEK COMFORT CURVE STRIP VI SCH ×4 (06:14→22:00)
[2021-10-22] MEDS: InsuLIN REG 1unit/0.01ml Soln (100units/ml) SC SCH ×4 (06:16→22:00)
[2021-10-22] MEDS: POTASSIUM CHL 10MEQ/50ML 50 ML IV SCH ×4 (09:00→11:00)
[2021-10-22] MEDS: ENOXAPARIN SOD 60 MG/0.6 ML SYRINGE SC SCH (10:00)
[2021-10-22] MEDS: PANTOPRAZOLE 40 MG/10 ML VIAL INJ IV SCH (10:00)
[2021-10-22] MEDS: LEVOTHYROXINE SODIUM 100 MCG/5 ML INJ IV SCH (10:00)
[2021-10-22] MEDS: MEROPENEM 500MG IVPB 50 ML IV SCH ×2 (10:00→21:24)
[2021-10-22] MEDS: fentaNYL Drip 2500mCg/250mlNS 250 ML IV SCH (16:00)
[2021-10-22] MEDS: FREE WATER GT SCH ×2 (18:29→22:00)
[2021-10-22] MEDS: VANCOMYCIN 1GM/250ML 250 ML IV SCH (18:43)
[2021-10-22 22:49] LABS: Potassium 3.8 mmol/L (3.5-5.1)
[2021-10-22 22:51] LABS: Magnesium 2.3 mg/dL (1.6-2.6)
[2021-10-23] VITALS (76 sets, daily range): BP systolic 72–164; BP diastolic 25–74
[2021-10-23] MEDS: FREE WATER GT SCH ×5 (02:00→18:19)
[2021-10-23 04:32] LABS: Hemoglobin 7.5 g/dL (12.2-16.2); White Blood Cell 18.6 10^3/uL (4.4-10.8)
[2021-10-23 04:38] LABS: Hematocrit 24.6 % (36.0-46.0); Mean Corpuscular Hemoglobin 28.1 pg (28.0-32.0); Mean Corpuscular Hgb Conc. 30.3 g/dL (32.0-36.0); Mean Corpuscular Volume 92.6 fL (80.0-100.0); Red Blood Cells 2.66 10^6/uL (4.0-5.20); Red Cell Distribution Width 19.4 % (11.8-14.3)
[2021-10-23 04:41] LABS: Basophils % (manual) 0 (0.0-2.0); Blast Cells 0; Myelocytes % 0; Promyelocytes % 0; Reactive Lymphocytes 0
[2021-10-23 04:44] LABS: BUN/Creatinine Ratio 30.1; Calcium 9.6 mg/dL (8.5-10.1)
[2021-10-23 04:54] LABS: Band Neutrophils % (manual) 6; Eosinophils % (manual) 3 (0-7); Lymphocytes % (manual) 7 (10.0-50.0); Metamyelocytes % 1; Monocytes % (manual) 3 (0-12)
[2021-10-23] MEDS: SODIUM CHLOR 0.9% PF (SALINE LOCK) 10ML VIAL/SYR IV SCH ×2 (06:40→14:00)
[2021-10-23] MEDS: InsuLIN REG 1unit/0.01ml Soln (100units/ml) SC SCH ×3 (06:41→17:00)
[2021-10-23] MEDS: ACCU-CHEK COMFORT CURVE STRIP VI SCH ×3 (06:42→17:00)
[2021-10-23] MEDS: ENOXAPARIN SOD 60 MG/0.6 ML SYRINGE SC SCH (10:00)
[2021-10-23] MEDS: MEROPENEM 500MG IVPB 50 ML IV SCH (10:00)
[2021-10-23] MEDS: PANTOPRAZOLE 40 MG/10 ML VIAL INJ IV SCH (10:00)
[2021-10-23] MEDS: LEVOTHYROXINE SODIUM 100 MCG/5 ML INJ IV SCH (10:00)
[2021-10-23] MEDS ORDERED: AMIODARONE HCL 200 MG TAB PO ONE ×2 (10:30→10:45)
[2021-10-23] MEDS ORDERED: ALBUMIN 25% 100 ML IV ONE (14:30)
[2021-10-23] MEDS ORDERED: FUROSEMIDE 100 MG/10ML VIAL IV ONE (14:30)
[2021-10-23] MEDS: VANCOMYCIN 1GM/250ML 250 ML IV SCH (18:19)
[2021-10-24] VITALS (81 sets, daily range): BP systolic 97–169; BP diastolic 36–65
[2021-10-24] MEDS: NOREPINEPHRINE 8 MG/250ML KIT 250 ML IV SCH ×3 (01:23→16:00)
[2021-10-24] MEDS: FREE WATER GT SCH ×6 (01:24→17:22)
[2021-10-24] MEDS: SODIUM CHLOR 0.9% PF (SALINE LOCK) 10ML VIAL/SYR IV SCH ×3 (01:24→13:51)
[2021-10-24] MEDS: MEROPENEM 500MG IVPB 50 ML IV SCH ×2 (01:24→10:01)
[2021-10-24] MEDS: AMIODARONE HCL 200 MG TAB PO SCH ×4 (01:24→09:38)
[2021-10-24] MEDS: PROPOFOL 100 ML IV SCH ×4 (01:26→18:07)
[2021-10-24] MEDS: MIDAZOLAM DRIP 50 mg/50mL 50 ML IV SCH ×3 (01:26→18:08)
[2021-10-24] MEDS: ACCU-CHEK COMFORT CURVE STRIP VI SCH ×4 (01:27→17:21)
[2021-10-24] MEDS: InsuLIN REG 1unit/0.01ml Soln (100units/ml) SC SCH ×5 (01:29→22:00)
[2021-10-24] MEDS: PANTOPRAZOLE 40 MG/10 ML VIAL INJ IV SCH (09:38)
[2021-10-24] MEDS: ENOXAPARIN SOD 60 MG/0.6 ML SYRINGE SC SCH ×2 (09:38→10:00)
[2021-10-24] MEDS: LEVOTHYROXINE SODIUM 100 MCG/5 ML INJ IV SCH (09:38)
[2021-10-24 11:19] LABS: Mean Corpuscular Volume 92.4 fL (80.0-100.0)
[2021-10-24 11:21] LABS: Hematocrit 21.9 % (36.0-46.0); Mean Corpuscular Hemoglobin 28.2 pg (28.0-32.0); Mean Corpuscular Hgb Conc. 30.5 g/dL (32.0-36.0); Red Blood Cells 2.37 10^6/uL (4.0-5.20); Red Cell Distribution Width 19.4 % (11.8-14.3); White Blood Cell 13.5 10^3/uL (4.4-10.8)
[2021-10-24 12:06] LABS: Hemoglobin 6.7 g/dL (12.2-16.2)
[2021-10-24 12:08] LABS: Basophils % (manual) 0 (0.0-2.0); Blast Cells 0; Promyelocytes % 0; Reactive Lymphocytes 0
[2021-10-24 12:12] LABS: Calcium 9.4 mg/dL (8.5-10.1); Potassium 3.6 mmol/L (3.5-5.1)
[2021-10-24 12:15] LABS: BUN/Creatinine Ratio 31.9
[2021-10-24 12:38] LABS: Band Neutrophils % (manual) 6; Eosinophils % (manual) 3 (0-7); Lymphocytes % (manual) 4 (10.0-50.0); Metamyelocytes % 2; Monocytes % (manual) 2 (0-12); Myelocytes % 1
[2021-10-24] MEDS: D5W 5% 1,000 ML IV SCH (13:10)
[2021-10-24] MEDS: fentaNYL Drip 2500mCg/250mlNS 250 ML IV SCH (15:33)
[2021-10-24] MEDS: VANCOMYCIN 1GM/250ML 250 ML IV SCH (18:03)
[2021-10-24] MEDS: MEROPENEM 1GM IVPB 100 ML IV SCH (22:00)
[2021-10-25] VITALS (72 sets, daily range): BP systolic 95–164; BP diastolic 31–64
[2021-10-25] MEDS: SODIUM CHLOR 0.9% PF (SALINE LOCK) 10ML VIAL/SYR IV SCH ×3 (01:48→16:06)
[2021-10-25] MEDS: AMIODARONE HCL 200 MG TAB PO SCH ×2 (01:49→09:27)
[2021-10-25] MEDS: ACCU-CHEK COMFORT CURVE STRIP VI SCH ×4 (01:50→17:25)
[2021-10-25] MEDS: FREE WATER GT SCH ×6 (01:50→17:40)
[2021-10-25 04:31] LABS: Hemoglobin 7.4 g/dL (12.2-16.2); Red Blood Cells 2.61 10^6/uL (4.0-5.20)
[2021-10-25 04:33] LABS: Hematocrit 23.8 % (36.0-46.0); Mean Corpuscular Hemoglobin 28.4 pg (28.0-32.0); Mean Corpuscular Hgb Conc. 31.2 g/dL (32.0-36.0); Mean Corpuscular Volume 91.1 fL (80.0-100.0); Red Cell Distribution Width 19.4 % (11.8-14.3); White Blood Cell 16.3 10^3/uL (4.4-10.8)
[2021-10-25 04:36] LABS: Basophils % (manual) 0 (0.0-2.0); Blast Cells 0; Monocytes % (manual) 0 (0-12); Myelocytes % 0; Promyelocytes % 0; Reactive Lymphocytes 0
[2021-10-25 04:40] LABS: BUN/Creatinine Ratio 33.1; Calcium 9.3 mg/dL (8.5-10.1); Potassium 3.6 mmol/L (3.5-5.1)
[2021-10-25] MEDS: InsuLIN REG 1unit/0.01ml Soln (100units/ml) SC SCH ×3 (05:42→17:25)
[2021-10-25 07:52] LABS: Band Neutrophils % (manual) 10; Eosinophils % (manual) 2 (0-7); Lymphocytes % (manual) 12 (10.0-50.0); Metamyelocytes % 1
[2021-10-25] MEDS ORDERED: ANGIOMAX 250 MG VIAL IV ONE (08:03)
[2021-10-25] MEDS ORDERED: VERAPAMIL 2.5MG/ML INJ 2ML VIAL IV ONE (08:03)
[2021-10-25] MEDS ORDERED: LIDOCAINE 2%HCL (LOCAL ANESTH.) INJ 20ML MDV ONE (08:04)
[2021-10-25] MEDS ORDERED: fentaNYL CITRATE 100 MCG/2 ML VL ONE (08:04)
[2021-10-25] MEDS ORDERED: IODIXANOL 320MG/ML 100ML BTL IV ONE (08:04)
[2021-10-25] MEDS ORDERED: SODIUM CHL 0.9% 50 ML ONE (08:04)
[2021-10-25] MEDS ORDERED: MIDAZOLAM HCL 2MG/2ML 2ml VIAL (1mg/ml) ONE (08:04)
[2021-10-25] MEDS ORDERED: HEPARIN IN NS 1000Units/500mL 0 ML ONE (08:04)
[2021-10-25] MEDS: D5W 5% 1,000 ML IV SCH (08:45)
[2021-10-25] MEDS: PANTOPRAZOLE 40 MG/10 ML VIAL INJ IV SCH (09:26)
[2021-10-25] MEDS: LEVOTHYROXINE SODIUM 100 MCG/5 ML INJ IV SCH (09:26)
[2021-10-25] MEDS: ENOXAPARIN SOD 60 MG/0.6 ML SYRINGE SC SCH (09:27)
[2021-10-25] MEDS ORDERED: INSULIN LANTUS (GLARGINE) 1 /0.01ml (100units/ml) SC SCH (10:00)
[2021-10-25] MEDS: MEROPENEM 1GM IVPB 100 ML IV SCH (11:30)
[2021-10-25] MEDS ORDERED: Glucerna 1.2 Cal 1Liter BOTTLE GT SCH (12:45)
[2021-10-25] MEDS: NOREPINEPHRINE 8 MG/250ML KIT 250 ML IV SCH (16:00)
[2021-10-25] MEDS: fentaNYL Drip 2500mCg/250mlNS 250 ML IV SCH (16:00)
[2021-10-25] MEDS: MIDAZOLAM DRIP 50 mg/50mL 50 ML IV SCH (16:07)
[2021-10-25] MEDS: VANCOMYCIN 1GM/250ML 250 ML IV SCH (17:41)
[2021-10-26] VITALS (61 sets, daily range): BP systolic 76–186; BP diastolic 29–69
[2021-10-26] MEDS: SODIUM CHLOR 0.9% PF (SALINE LOCK) 10ML VIAL/SYR IV SCH ×3 (01:14→14:05)
[2021-10-26] MEDS: AMIODARONE HCL 200 MG TAB PO SCH ×2 (01:14→09:36)
[2021-10-26] MEDS: FREE WATER GT SCH ×6 (01:14→18:00)
[2021-10-26] MEDS: MEROPENEM 1GM IVPB 100 ML IV SCH ×2 (01:14→09:27)
[2021-10-26] MEDS: InsuLIN REG 1unit/0.01ml Soln (100units/ml) SC SCH ×4 (01:16→17:28)
[2021-10-26] MEDS: ACCU-CHEK COMFORT CURVE STRIP VI SCH ×4 (01:16→17:00)
[2021-10-26] MEDS: D5W 5% 1,000 ML IV SCH ×2 (01:17→01:18)
[2021-10-26 05:09] LABS: Hemoglobin 7.1 g/dL (12.2-16.2); Mean Corpuscular Volume 92.8 fL (80.0-100.0); White Blood Cell 14.2 10^3/uL (4.4-10.8)
[2021-10-26 05:11] LABS: Hematocrit 23.4 % (36.0-46.0); Mean Corpuscular Hemoglobin 28.1 pg (28.0-32.0); Mean Corpuscular Hgb Conc. 30.3 g/dL (32.0-36.0); Red Blood Cells 2.53 10^6/uL (4.0-5.20); Red Cell Distribution Width 19.4 % (11.8-14.3)
[2021-10-26 05:21] LABS: Calcium 9.3 mg/dL (8.5-10.1); Potassium 4.3 mmol/L (3.5-5.1)
[2021-10-26 05:26] LABS: Basophils % (manual) 0 (0.0-2.0); Blast Cells 0; Metamyelocytes % 0; Myelocytes % 0; Promyelocytes % 0; Reactive Lymphocytes 0
[2021-10-26] MEDS ORDERED: PHENYLEPHRINE IV 250 ML IV ONE ×2 (05:26→07:37)
[2021-10-26] MEDS: PANTOPRAZOLE 40 MG/10 ML VIAL INJ IV SCH (05:46)
[2021-10-26 07:11] LABS: Band Neutrophils % (manual) 15; Eosinophils % (manual) 4 (0-7); Monocytes % (manual) 2 (0-12)
[2021-10-26 07:12] LABS: Lymphocytes % (manual) 12 (10.0-50.0)
[2021-10-26] MEDS: LEVOTHYROXINE SODIUM 100 MCG/5 ML INJ IV SCH (09:28)
[2021-10-26] MEDS: ENOXAPARIN SOD 60 MG/0.6 ML SYRINGE SC SCH (09:36)
[2021-10-26] MEDS: INSULIN LANTUS (GLARGINE) 1 /0.01ml (100units/ml) SC SCH (11:17)
[2021-10-26] MEDS ORDERED: INSULIN LANTUS (GLARGINE) 1 /0.01ml (100units/ml) SC SCH (12:00)
[2021-10-26] MEDS: VASOPRESSIN 50 UNITS in D5W 5% 247.5 ML IV SCH (12:00)
[2021-10-26] MEDS: NOREPINEPHRINE 8 MG/250ML KIT 250 ML IV SCH (12:37)
[2021-10-26] MEDS: fentaNYL Drip 2500mCg/250mlNS 250 ML IV SCH (15:33)
[2021-10-26] MEDS: PROPOFOL 100 ML IV SCH (15:35)
[2021-10-26] MEDS: MIDAZOLAM DRIP 50 mg/50mL 50 ML IV SCH (18:00)
[2021-10-26] MEDS: VANCOMYCIN 1GM/250ML 250 ML IV SCH (18:00)
[2021-10-26] MEDS ORDERED: ALBUMIN 25% 100 ML IV ONE ×2 (21:01→22:30)
[2021-10-26] MEDS ORDERED: PHENYLEPHRINE IV 500 ML IV ONE (21:10)
[2021-10-27] VITALS (24 sets, daily range): BP systolic 69–182; BP diastolic 26–75
[2021-10-27] MEDS: SODIUM CHLOR 0.9% PF (SALINE LOCK) 10ML VIAL/SYR IV SCH ×3 (01:26→13:59)
[2021-10-27] MEDS: MEROPENEM 1GM IVPB 100 ML IV SCH ×2 (01:26→10:00)
[2021-10-27] MEDS: FREE WATER GT SCH ×5 (01:26→13:59)
[2021-10-27] MEDS: AMIODARONE HCL 200 MG TAB PO SCH ×2 (01:27→10:00)
[2021-10-27] MEDS: ACCU-CHEK COMFORT CURVE STRIP VI SCH ×3 (01:28→11:48)
[2021-10-27] MEDS: InsuLIN REG 1unit/0.01ml Soln (100units/ml) SC SCH ×3 (01:28→11:47)
[2021-10-27 07:23] LABS: BUN/Creatinine Ratio 34.5; Potassium 4.2 mmol/L (3.5-5.1)
[2021-10-27] MEDS: ENOXAPARIN SOD 60 MG/0.6 ML SYRINGE SC SCH (10:00)
[2021-10-27] MEDS: PANTOPRAZOLE 40 MG/10 ML VIAL INJ IV SCH (10:00)
[2021-10-27] MEDS: LEVOTHYROXINE SODIUM 100 MCG/5 ML INJ IV SCH (10:00)
[2021-10-27] MEDS: VASOPRESSIN 50 UNITS in D5W 5% 247.5 ML IV SCH (11:00)
[2021-10-27] MEDS: INSULIN LANTUS (GLARGINE) 1 /0.01ml (100units/ml) SC SCH (12:00)
[2021-10-27] MEDS ORDERED: LORazepam 2MG/ML-1ML VIAL IV PRN (12:30)
[2021-10-27] MEDS ORDERED: MORPHINE SULFATE INJECTION 2 MG/ML SYRG IV PRN (12:30)
== END 2021-10-27 17:20 | DRG 870 ==
LOC: EDBD 18:12 → ER 18:12 → TELE 10-01 08:58 → TELE-WESTW 10-03 22:31 → ICU WEST 10-20 12:06
PROVIDERS: ADMIT Nurse Practitioner Acute Care; ATTEND Internal Medicine Geriatric Medicine
PROC: 02HV33Z Insertion of Infusion Device into Superior Vena Cava, Percutaneous Approach (ICD-10-PCS; 2021-10-01)
PROC: 05HB33Z Insertion of Infusion Device into Right Basilic Vein, Percutaneous Approach (ICD-10-PCS; 2021-10-17)
PROC: B54MZZA Ultrasonography of Right Upper Extremity Veins, Guidance (ICD-10-PCS; 2021-10-17)
PROC: 5A09357 Assistance with Respiratory Ventilation, Less than 24 Consecutive Hours, Continuous Positive Airway Pressure (ICD-10-PCS; 2021-10-18)
PROC: 0W9B30Z Drainage of Left Pleural Cavity with Drainage Device, Percutaneous Approach (ICD-10-PCS; 2021-10-19)
PROC: 5A09357 Assistance with Respiratory Ventilation, Less than 24 Consecutive Hours, Continuous Positive Airway Pressure (ICD-10-PCS; 2021-10-19)
PROC: 06HY33Z Insertion of Infusion Device into Lower Vein, Percutaneous Approach (ICD-10-PCS; principal; 2021-10-20)
PROC: 5A1955Z Respiratory Ventilation, Greater than 96 Consecutive Hours (ICD-10-PCS; 2021-10-20)
PROC: 0BH17EZ Insertion of Endotracheal Airway into Trachea, Via Natural or Artificial Opening (ICD-10-PCS; 2021-10-20)
PROC: B54BZZA Ultrasonography of Right Lower Extremity Veins, Guidance (ICD-10-PCS; 2021-10-20)
PROC: 5A09357 Assistance with Respiratory Ventilation, Less than 24 Consecutive Hours, Continuous Positive Airway Pressure (ICD-10-PCS; 2021-10-20)
DX: A41.89 Other specified sepsis (principal); G93.41 Metabolic encephalopathy; I21.4 Non-ST elevation (NSTEMI) myocardial infarction; U07.1 COVID-19; J12.82 Pneumonia due to coronavirus disease 2019; J96.01 Acute respiratory failure with hypoxia; N17.0 Acute kidney failure with tubular necrosis; R65.21 Severe sepsis with septic shock; N39.0 Urinary tract infection, site not specified; E87.0 Hyperosmolality and hypernatremia; F05 Delirium due to known physiological condition; G93.1 Anoxic brain damage, not elsewhere classified; J93.9 Pneumothorax, unspecified; K92.2 Gastrointestinal hemorrhage, unspecified; J44.0 Chronic obstructive pulmonary disease with (acute) lower respiratory infection; W06.XXXA Fall from bed, initial encounter; N18.30 Chronic kidney disease, stage 3 unspecified; F41.9 Anxiety disorder, unspecified; E66.9 Obesity, unspecified; E78.5 Hyperlipidemia, unspecified; B96.20 Unspecified Escherichia coli [E. coli] as the cause of diseases classified elsewhere; D64.9 Anemia, unspecified; E87.6 Hypokalemia; F32.A Depression, unspecified; E11.22 Type 2 diabetes mellitus with diabetic chronic kidney disease; E11.65 Type 2 diabetes mellitus with hyperglycemia; F03.90 Unspecified dementia, unspecified severity, without behavioral disturbance, psychotic disturbance, mood disturbance, and anxiety; I12.9 Hypertensive chronic kidney disease with stage 1 through stage 4 chronic kidney disease, or unspecified chronic kidney disease; I25.10 Atherosclerotic heart disease of native coronary artery without angina pectoris; M79.7 Fibromyalgia; Y92.238 Other place in hospital as the place of occurrence of the external cause; I48.91 Unspecified atrial fibrillation; Z78.1 Physical restraint status; Z79.4 Long term (current) use of insulin; Z79.899 Other long term (current) drug therapy; Z85.048 Personal history of other malignant neoplasm of rectum, rectosigmoid junction, and anus; Z90.710 Acquired absence of both cervix and uterus; Z79.01 Long term (current) use of anticoagulants; Y93.89 Activity, other specified; Y99.8 Other external cause status
CPT/HCPCS: 32555; 36415; 36600; 71045; 72192; 73630; 76942; 80048; 80053; 80202; 80307; 81001; 82550; 82607; 82746; 82805; 82962; 83036; 83605; 83615; 83735; 83880; 83986; 84132; 84443; 84484; 85007; 85014; 85018; 85025; 85027; 85610; 85730; 86141; 86850; 86900; 86901; 87040; 87070; 87081; 87086; 87088; 87186; 87205; 87426; 87493; 89051; 93005; 93306; 94002; 94003; 94660; 94760; 96365; 96367; 96372; 96375; 97110; 97116; 97163; 97530; C1729; C9113; G0378; J0330; J0696; J1815; J2185; J2250; J2405; J2704; J3490; J7060; P9047; Q9967